=== PATIENT | female | born 1945 | race Caucasian/White ===

== ENCOUNTER 2021-01-30 05:36 | Inpatient (IN) | payer BC, MEDICARE ==
[~2021-01-30] VITALS: Ht 167.6 cm; Wt 104.5 kg
[2021-01-30] MEDS ORDERED: ATOR1TAB19 PO (07:32)
[2021-01-30] MEDS ORDERED: FOSA70TA PO (07:32)
[2021-01-30] MEDS ORDERED: ACTO30TA15 PO (07:32)
[2021-01-30] MEDS ORDERED: DITR5TAB PO (07:32)
[2021-01-30] MEDS ORDERED: ASPI81CH33 PO (07:32)
[2021-01-30] MEDS ORDERED: FAMO10TA53 PO (07:32)
[2021-01-30] MEDS ORDERED: MIRA3350 PO (07:32)
[2021-01-30] MEDS ORDERED: ACCU5TAB7 PO (07:32)
[2021-01-30] MEDS ORDERED: MORPHINE 4 MG/ML 1ML VIAL/SYRINGE (J2270) IV ONE ×2 (07:35→09:05)
[2021-01-30] MEDS ORDERED: BOOSTRIX/ADACEL VACCINE (DIPHTH/PERTUSS/ACELL/TETANUS) 0.5ML SYR IM ONE (07:35)
[2021-01-30 08:03] LABS: BASO % 0.2 % (0.0-1.0); EOS % 0.2 % (0.0-3.0); HEMATOCRIT 33.9 % (36.0-47.0); HEMOGLOBIN 10.6 g/dl (12.0-15.5); LYMPH # 1.3 10^3/uL (1.5-5.0); LYMPH % 8.6 % (24.0-44.0); MEAN CORPUSCULAR HEMOGLOBIN 30.2 pg (27.0-33.0); MEAN CORPUSCULAR HGB CONC 31.3 g/dl (32.0-36.5); MEAN CORPUSCULAR VOLUME 96.6 fl (80.0-96.0); MONO # 1.1 10^3/uL (0.0-0.8); MONO % 7.3 % (2.0-8.0); NEUTROPHILS # 12.9 10^3/uL (1.5-8.5); NEUTROPHILS % 82.8 % (36.0-66.0); PLATELET COUNT, AUTOMATED 264 10^3/uL (150-450); RED BLOOD COUNT 3.51 10^6/uL (4.00-5.40); WHITE BLOOD COUNT 15.5 10^3/uL (4.0-10.0)
--- NOTE | 2021-01-30 08:32 | REP ---
INDICATION: trauma post rib pain COMPARISON: None TECHNIQUE: Axial noncontrast images from the thoracic inlet to the upper abdomen with coronal and sagittal reformations. This CT examination was performed using the following dose reduction techniques: Automated exposure control, adjustment of mA and/or kv according to the patient's size, and use of iterative reconstruction technique. FINDINGS: Posterior and lateral right 4th through 11th rib fractures with relatively mild bibasilar atelectasis and small pleural effusion. No pneumothorax. Tracheobronchial tree is patent. Mediastinum demonstrates atherosclerotic changes to the thoracic aorta and coronary arteries without aortic aneurysm or cardiomegaly. No pericardial effusion. No significant mediastinal fluid, hematoma, or evidence for injury. Further evaluation of the musculoskeletal structures demonstrate acute comminuted fracture involving the left humeral head/neck and old healed displaced proximal right humerus fracture. Limited upper abdomen without evidence for acute injury. IMPRESSION: 1. Multiple multipartite right rib fractures. Comminuted left humeral head/neck fracture. 2. Minimal bibasilar atelectasis and small pleural effusions. <Electronically signed by Tez Lerma > 01/30/21 0831
[2021-01-30 08:38] LABS: ALBUMIN 3.4 GM/DL (3.2-5.2); ALT/SGPT 12 U/L (12-78); BILIRUBIN,DIRECT 0.1 MG/DL (0.0-0.2); BILIRUBIN,TOTAL 0.4 MG/DL (0.2-1.0); BLOOD UREA NITROGEN 32 MG/DL (7-18); CALCIUM LEVEL 8.3 MG/DL (8.8-10.2); CARBON DIOXIDE LEVEL 25 MEQ/L (21-32); CHLORIDE LEVEL 108 MEQ/L (98-107); CK-MB VALUE MASS 1.3 NG/ML (<3.6); CPK CREATINE PHOSPHOKINASE 153 U/L (26-192); CREATININE FOR GFR 1.43 MG/DL (0.55-1.30); FREE T4 1.23 NG/DL (0.76-1.46); GLOMERULAR FILTRATION RATE 37.9 (>39); GLUCOSE, FASTING 189 MG/DL (70-100); MB/CK RELATIVE INDEX 0.85 (< OR =4); SODIUM LEVEL 143 MEQ/L (136-145); TOTAL PROTEIN 6.8 GM/DL (6.4-8.2); TROPONIN I < 0.02 NG/ML (< 0.10)
--- NOTE | 2021-01-30 08:55 | REP ---
INDICATION: trauma COMPARISON: None. TECHNIQUE: AP, lateral, bilateral oblique and sunrise views. FINDINGS: Age-related osteopenia and moderate tricompartmental osteoarthritic degenerative changes primarily involving the patella and patellofemoral joint space. No obvious acute fracture or dislocation, but subtle injury along the lateral aspect of the patella (versus irregular osteophyte) should be evaluated by physical examination. No definite effusion. IMPRESSION: Osteopenia and degenerative changes limit evaluation. No obvious acute fracture or dislocation. <Electronically signed by Tez Lerma > 01/30/21 08
[2021-01-30] MEDS: oxyBUTYnin *DITROPAN XL* 5 MG TABCR PO SCH ×4 (09:00→21:10)
--- NOTE | 2021-01-30 09:11 | REP ---
INDICATION: trauma COMPARISON: None. TECHNIQUE: AP and lateral views of the left humerus. FINDINGS: There is a comminuted displaced fracture through the humeral metaphysis. The acromioclavicular joint appears intact. The calcified glenoid and scapula appear intact. Underlying age-related osteopenia and degenerative changes noted. IMPRESSION: Comminuted displaced fracture through the humeral metaphysis.. <Electronically signed by Tez Lerma > 01/30/21 0908
[2021-01-30 09:41] LABS: RSV AMPLIFICATION NEGATIVE (NEGATIVE)
[2021-01-30] MEDS ORDERED: FAMO20TA PO (09:45)
[2021-01-30] MEDS ORDERED: QUIN40TA26 PO (09:45)
[2021-01-30] MEDS ORDERED: PIOG1TAB36 PO (09:45)
[2021-01-30] MEDS ORDERED: CETI10TA4 PO (09:45)
[2021-01-30] MEDS ORDERED: CHOL50002 PO (09:45)
[2021-01-30] MEDS ORDERED: ATOR80TA59 PO (09:45)
[2021-01-30] MEDS ORDERED: MAALOX 30 ML SUSP *UDC PO PRN (11:25)
[2021-01-30] MEDS ORDERED: MOM 30ML SUSPENSION UDC PO PRN (11:25)
[2021-01-30] MEDS ORDERED: NORCO, ANEXSIA 5/325MG TABLET (HYDROcodone/ACETAMINOPHEN) PO PRN (11:40)
[2021-01-30] MEDS ORDERED: ONDANSETRON 4 MG TAB PO PRN (11:40)
[2021-01-30] MEDS ORDERED: DEXTROSE 50% 50 ML SYRINGE IV PRN (13:30)
[2021-01-30] MEDS ORDERED: GLUCAGON INJ 1MG VIAL SC PRN (13:30)
[2021-01-30] MEDS ORDERED: GLUCOSE 4GM CHEW TABLET PO PRN (13:30)
[2021-01-30] MEDS ORDERED: PILL CUTTER 1 EACH XX ONE (13:31)
[2021-01-30] MEDS: DOCUSATE SODIUM 100MG CAPSULE PO SCH ×2 (13:38→21:31)
[2021-01-30] MEDS: ASPIRIN 81 MG CHEW TABLET PO SCH (13:38)
[2021-01-30] MEDS: HYDROmorphone 2 MG TAB PO PRN ×2 (13:38→23:40)
[2021-01-30] MEDS: HumaLOG INSULIN (NovoLOG) PER UNIT SC SCH ×2 (13:52→21:00)
--- NOTE | 2021-01-30 15:07 | ECGEPIP ---
[facility] - ED Test Date: 2021-01-30 Pat Name: PANCHITO BRUCE Department: Room: [place] [address] Gender: Female [employer]: TORI : 1945 Requested By: CHARLOTTE Correa Order Number: [id number] Reading MD: Sameer Hunt Measurements Intervals [place] Rate: 83 P: 28 NM: 142 QRS: -33 QRSD: 86 T: 34 QT: 388 QTc: 455 Interpretive Statements Normal sinus rhythm Left axis deviation Possible Anterior infarct , age undetermined NO PRIORS FOR COMPARISON Electronically Signed on 01-30-2021 15:07:36 EDT by Sameer Hunt
--- NOTE | 2021-01-30 15:22 | HPEPDOC ---
General Date of Admission Jan 30, 2021 at 11:14 Date of Service: Jan 30, 2021 Attending Physician: CJ MARTINEZ MD Chief Complaint The patient is a 75-year-old female admitted with a reason for visit of Fall, Left Humeral Fracture, Multiple Rib Fracture. History of Present Illness HPI Pt is a 75yo F who presented to ED with R-sided mid-upper back pain that started after an unwitnessed fall at 4:30am this morning. Pt was sleeping in a recliner chair and when attempting to get up she felt weakness in her ankles and fell forward, hitting her R side of upper body against the edge of a bed frame and possibly door frame as well. She denies head trauma, LOC, or loss of continence, seizure-like activity, postictal confusion. States the pain is 10/10 in severity, and is sharp and constant. was present and admits that she is unstable while walking and has a hx of falling. Pt is on vacation for this week, she and her travelled from [place]. PMHx Diabetes Mellitus Type 2 HTN Osteoporosis Chronic Lumbar Back pain Hypercholesterolemia Bladder Hyperactivity CKD stage III remote Hx GERD SxHx Cataract eye surgery Lateral ankle tendon avulsion repair. R wrist surgery-distal ulnar and radial internal fixation (2018). FHx Mother-celiacs disease, in her 80s. Father- Hx heart disease, at 65. 2 sisters- no pertinent health Hx, both alive. SHx No Hx smoking or EtOH use. No Hx illicit drug use. Balanced diet. Pt does not exercise regularly. Uses walker to ambulate. Pt was a law secretary, retired for 20yrs. ROS Gen: Pt c/o R sided rib pain. Denies fever or chills. HEENT: Denies SLADE, dysphagia, vision changes, neck pain. RESP: Denies SOB, admits to pain on R posterior and lateral thorax w deep inspiration. CVS: Denies chest pain the center of the chest but reports having pain in the right lateral chest region which she had rib fractures. ABD: Denies abdominal pain, N/V, diarrhea, or constipation. MSK: Denies pain or numbness in distal extremities. Admits to pain on R mid upper back. Reports having pain in the left shoulder as well NEURO: Denies paresthesias. SKIN: Denies distal extremity swelling. Physical Exam Gen: Pt is pleasant, but in moderate distress d/t pain. Pt speaking in short sentences due to pain with breathing. Psych: A+Ox3 HEENT: PERRLA, EOMI, hearing mildly decreased, no JVD, no cervical lymphaden opathy. Oral mucosa looks dry because she did not have anything to drink since morning. RESP: CTA b/l, no rhonchi, crackles, or wheeze. CVS: RRR, no gallop, rubs, or murmurs. ABD: soft, ND, NT, normoactive bowel sounds. MSK: Pt is wearing ankle braces b/l, and a brace on R wrist. Plantar/dorsiflex ion 5/5 b/l. Neck nontender to palpation. Tenderness to light palpation along ribs 6-9 posterior and lateral. Pt is wearing L arm sling, tenderness to light palpation proximal upper L arm. Pt unwilling to adduct L shoulder. NEURO CN III-XII intact. SKIN: Abrasion 1cm in diameter present on R anterior knee. Ecchymoses of similar size present on L medial knee. Imaging CT Chest without contrast Reported as- 1. Multiple multipartite right rib fractures. Comminuted left humeral head/neck fracture. 2. Minimal bibasilar atelectasis and small pleural effusions. XR Knee, complete RIGHT Reported as- Osteopenia and degenerative changes limit evaluation. No obvious acute fracture or dislocation. XR Humerus LEFT Reported as- Comminuted displaced fracture through the humeral metaphysis. Assessment Pt is a 75yo F w PMHx of diabetes mellitus type 2, HTN, osteoporosis, chronic lumbar back pain, hypercholesterolemia, bladder hyperactivity, CKD stage III, and GERD. She presented to ED today R-sided posterior and lateral mid thoracic pain d/t a fall this morning. Pt is being admitted to hospital for pain management and respiratory monitoring. Plan 1. Fall/Multiple Rib Fracture and R posterior and lateral mid back pain Bed rest, fall risk, and aspiration precaution orders in place. We will start on Dilaudid 0.5mg Q6HP PO PRN. Alternating between Dilaudid and h ydrocodone. We will start on hydrocodone bitart/acetaminophen 1 tab Q6HP PO PRN. Will give ondansetron 4mg PO BID PRN. Will give acetaminophen 650mg PO Q4H PRN. 2. Pain on Inspiration: We will continue to give pain medication and encourage patient to use incentive spirometry and lung expansion therapy to prevent having any pneumonia. We will start on incentive spirometry. 3. Fracture L Humeral Metaphysis Orthopedic Dr. Moore was consulted and is aware of this case. Will see pt tonight or tomorrow morning for humeral fracture evaluation. Pt can be on consistent carbohydrate diet We appreciate Dr. Moore's input on this patient. 4. Diabetes Mellitus Type [address] Started insulin sliding scale. Pt is on consistent carb diet. 5. HTN We will continue home dose of quinapril 40mg PO daily. We will continue home dose of aspirin 81mg PO daily. 7. Hypercholesterolemia We will continue home dose of atorvastatin 80mg QHS PO. 8. Bladder Hyperactivity We will continue home dose of oxybutyrin 5mg PO TID. 9. CKD stage III Will monitor GFR and Cr. Initial labs show GFR 37.9 L, Cr 1.43 H, BUN 32 H -Patient was again encouraged to drink as much as watery and food intake as possible 11. DVT Prophylaxis Will give heparin SC Q12H. DISPOSITION: Currently, our goal with this patient is to continue pain management and incentive spirometry. Will continue to monitor pt for clinical improvement. She will need outpatient f/u with orthopedic surgery for evaluation of humoral fracture. Home Medications Scheduled Alendronate Sodium (Fosamax) 70 Mg Tablet, 70 MG PO QWEEK, (Reported) FRIDAYS Aspirin (Aspirin) 81 Mg Tab.chew, 81 MG PO DAILY, (Reported) Atorvastatin Calcium (Atorvastatin Calcium) 80 Mg Tablet, 80 MG PO DAILY, (Reported) Cholecalciferol (Vitamin D3) (Vitamin D3) 125 Mcg Capsule, 125 MCG PO DAILY, (Reported) Oxybutynin Chloride (Ditropan Xl) 5 Mg Tab.er.24, 5 MG PO TID, (Reported) Pioglitazone HCl (Pioglitazone HCl) 15 Mg Tablet, 15 MG PO DAILY, (Reported) Polyethylene Glycol 3350 (Miralax) 119 Gm Powder, 17 GRAM PO DAILY, (Reported) Quinapril HCl (Quinapril HCl) 40 Mg Tablet, 40 MG PO DAILY, (Reported) Scheduled PRN Cetirizine HCl (Cetirizine HCl) 10 Mg Tablet, 10 MG PO DAILY PRN for ALLERGIES, (Reported) Famotidine (Famotidine) 20 Mg Tablet, 20 MG PO DAILY PRN for HEARTBURN, (Reported) Allergies Coded Allergies: No Known Drug Allergies (Verified Allergy, Unknown, 01/30/21) A-FIB/CHADSVASC A-FIB History Current/History of A-Fib/PAF?: No Current PO Anticoag Therapy: No Vital Signs Vital Signs Date Time Temp Pulse Resp B/P (MAP) Pulse Ox O2 Delivery O2 Flow Rate FiO2 01/30/21 14:15 181/79 (113) 01/30/21 14:00 80 98 01/30/21 13:45 Nasal Cannula 2.0 01/30/21 13:38 18 01/30/21 07:23 97.5 Laboratory Data Labs 24H Laboratory Tests 2 01/30/21 07:43: Immature Granulocyte % (Auto) 0.9, Neutrophils (%) (Auto) 82.8H, Lymphocytes (%) (Auto) 8.6L, Monocytes (%) (Auto) 7.3, Eosinophils (%) (Auto) 0.2, Basophils (%) (Auto) 0.2, Neutrophils # (Auto) 12.9H, Lymphocytes # (Auto) 1.3L, Monocytes # (Auto) 1.1H, Eosinophils # (Auto) 0.0, Basophils # (Auto) 0.0, Nucleated Red Blood Cells % (auto) 0.0, Anion Gap 10, Glomerular Filtration Rate 37.9L, Calcium Level 8.3L, Total Bilirubin 0.4, Direct Bilirubin 0.1, Aspartate Amino Transf (AST/SGOT) 19, Alanine Aminotransferase (ALT/SGPT) 12, Alkaline Phosphatase 87, Total Creatine Kinase 153, Creatine Kinase MB 1.3, Creatine Kinase MB Relative Index 0.85, Troponin I < 0.02, Total Protein 6.8, Albumin 3.4, Albumin/Globulin Ratio 1.0L, Thyroid Stimulating Hormone (TSH) 1.290, Free Thyroxine 1.23 01/30/21 08:54: Coronavirus (COVID-19)(PCR) NEGATIVE, Influenza Type A (RT-PCR) NEGATIVE, Influenza Type B (RT-PCR) NEGATIVE, Respiratory Syncytial Virus (PCR) NEGATIVE 01/30/21 13:46: Bedside Glucose (Misc Panel) 204H CBC/BMP Laboratory Tests 01/30/21 07:43 Plan / VTE VTE Prophylaxis Ordered?: Yes KEN [id number] Jan 30, 2021 15:22 Enrique Lakhani MD Jan 30, 2021 19:27
--- NOTE | 2021-01-30 18:46 | CR ---
CONSULTATION DATE: 01/30/2021 CHIEF COMPLAINT: Left proximal humerus fracture. HISTORY OF PRESENT ILLNESS: This 75-year-old female had a fall. She is visiting from [place]. They are renting a camp. She lives five hours away. She is here with her . No chest pain, shortness of breath, or loss of consciousness. She is right hand dominant. She has had a prior right proximal humerus fracture treated successfully nonoperatively and now this is on the left side her injury. She has been admitted to the hospital to the hospitalist service for multiple rib fractures and pain management. PAST MEDICAL HISTORY: 1. Type 2 diabetes. 2. Hypertension. 3. Osteoporosis. 4. Chronic lumbar back pain. 5. Hypercholesterolemia. 6. Bladder hyperactivity. 7. CKD stage III. 8. Remote history of GERD. MEDICATIONS: 1. Alendronate. 2. Aspirin. 3. Atorvastatin. 4. Vitamin D3. 5. Oxybutynin. 6. Pioglitazone. 7. Polyethylene glycol. 8. Quinapril. ALLERGIES: No known drug allergies. PAST SURGICAL HISTORY: 1. Cataracts. 2. Left ankle tendon avulsion repair. 3. Right wrist surgery ORIF in 2018. SOCIAL HISTORY: No history of smoking or ETOH. No drug use. Uses the walker regularly to ambulate. PHYSICAL EXAMINATION: A 75-year-old obese female. She looks her stated age. Inspection of her left upper extremity reveals no obvious overlying ecchymosis or deformity. There is an increased soft tissue envelope. Normal sensation, motor function axillary nerve, as well as MRU, AIN/PIN. Hands are warm and well perfused. Strong radial pulse. No pain at the hand, wrist, or elbow. Forearm compartments are soft. IMAGING DATA: Radiographs reviewed of the left proximal humerus, as well as the CT scan. There is a comminuted displaced fracture through the humeral metaphysis. The glenohumeral joint appears reduced. The amount of displacement is approximately a little over 50% with the humeral shaft lying medially. ASSESSMENT AND PLAN: This 75-year-old obese medically unwell female with a left proximal humerus fracture displaced a little over 50%. I explained to her options of nonoperative conservative management and a sling followed by pendulum exercises, hand, wrist, and elbow exercises, and discontinuing the sling at about week two to three after the injury. Her other option would be open reduction internal fixation with plate fixation. Discussed the surgical risks of infection, pain, stiffness, bleeding, damage to surrounding structures, neurovascular injury, delayed mal or nonunion, plate irritation, failure of the plate, anesthetic complications, blood clots, , and other risks. In addition, one could try to treat this in a closed fashion and possibly perform reverse total shoulder arthroplasty if she fails that, although she ambulates with a walker, and this would be contraindicated and less than ideal. Also complicating the situation is the fact that the patient lives in [place] many hours away and has rented a cabin up near here. I think, in my opinion, the most prudent for her would be to treat the proximal humerus fracture for now nonoperatively, control the rib pain, see physical therapy (PT), occupational therapy (OT) and social work while admitted to the hospital for discharge planning in the next few days and attempt to return closer to where they live with further consideration given to surgery at that point potentially. In addition, they should get the opinion of the surgeon who treated the right proximal humerus fracture so they can compare the amount of displacement and angulation, as they had a good result with nonoperative treatment on the other side and as this side were to look similar, then one could hopefully expect a similar outcome. I have explained this all to the patient and her and for now, we will wait to make a final decision, although my impression is that she would do better at this point with conservative management given her difficulties with mobility, rib fractures, and current social situation. For now the patient can be MIHIR and a sling to the left upper extremity. SOPHIA
[2021-01-30] MEDS: NORCO, ANEXSIA 5/325MG TABLET (HYDROcodone/ACETAMINOPHEN) PO PRN (18:51)
[2021-01-30] MEDS: ATORVASTATIN 20 MG TAB PO SCH (21:31)
[2021-01-30] MEDS: HEPARIN SOD (PORCINE) 5000UNITS/ML 1ML VIAL/SYRINGE SC SCH (21:33)
[2021-01-30 23:17] VITALS: BP 182/79
[2021-01-31] MEDS ORDERED: MORPHINE 4 MG/ML 1ML VIAL/SYRINGE (J2270) IV ONE (00:40)
[2021-01-31] MEDS: NORCO, ANEXSIA 5/325MG TABLET (HYDROcodone/ACETAMINOPHEN) PO PRN ×2 (01:39→12:54)
[2021-01-31 02:00] VITALS: BP 146/59
[2021-01-31 05:23] VITALS: BP 127/97
[2021-01-31 07:31] LABS: BASO % 0.3 % (0.0-1.0); EOS % 0.1 % (0.0-3.0); HEMATOCRIT 29.5 % (36.0-47.0); HEMOGLOBIN 9.1 g/dl (12.0-15.5); LYMPH # 1.5 10^3/uL (1.5-5.0); LYMPH % 13.6 % (24.0-44.0); MEAN CORPUSCULAR HEMOGLOBIN 29.9 pg (27.0-33.0); MEAN CORPUSCULAR HGB CONC 30.8 g/dl (32.0-36.5); MONO # 1.2 10^3/uL (0.0-0.8); NEUTROPHILS # 8.1 10^3/uL (1.5-8.5); NEUTROPHILS % 74.7 % (36.0-66.0); PLATELET COUNT, AUTOMATED 199 10^3/uL (150-450); RED BLOOD COUNT 3.04 10^6/uL (4.00-5.40); WHITE BLOOD COUNT 10.9 10^3/uL (4.0-10.0)
[2021-01-31 07:50] LABS: CALCIUM LEVEL 7.8 MG/DL (8.8-10.2); CREATININE FOR GFR 1.76 MG/DL (0.55-1.30); GLOMERULAR FILTRATION RATE 29.8 (>39); POTASSIUM SERUM 4.6 MEQ/L (3.5-5.1)
[2021-01-31] MEDS ORDERED: NS 0.45% 1,000 ML IV SCH (08:55)
[2021-01-31] MEDS ORDERED: QUINAPRIL 20 MG TAB PO SCH (09:00)
--- NOTE | 2021-01-31 09:07 | REP ---
INDICATION: Rib fractures. COMPARISON: None. TECHNIQUE: PA and lateral FINDINGS: The lateral views nondiagnostic. It is grossly underpenetrated. Secondary to the patient's proximal left humeral fracture of the left arm could not be raised above the head. The frontal view shows a patchy right upper lobe opacity and patchy left lower lobe opacities with left CP angle blunting. There is cardiomegaly. There are multiple age undetermined right rib fractures better seen on the chest CT obtained yesterday. IMPRESSION: One exam limitations as described above 2 patchy bilateral lung field opacities as described above probable subsegmental atelectatic changes, however, developing pneumonia cannot be ruled out. Consider repeat chest CT. <Electronically signed by Vito Obregon > 01/31/21 0993
[2021-01-31] MEDS: DOCUSATE SODIUM 100MG CAPSULE PO SCH ×2 (09:33→21:22)
[2021-01-31] MEDS: ASPIRIN 81 MG CHEW TABLET PO SCH (09:34)
[2021-01-31] MEDS: HEPARIN SOD (PORCINE) 5000UNITS/ML 1ML VIAL/SYRINGE SC SCH ×2 (09:34→21:23)
[2021-01-31] MEDS: oxyBUTYnin *DITROPAN XL* 5 MG TABCR PO SCH ×3 (09:34→22:13)
[2021-01-31] MEDS: HumaLOG INSULIN (NovoLOG) PER UNIT SC SCH ×3 (09:35→18:07)
[2021-01-31 10:00] VITALS: BP 113/72
--- NOTE | 2021-01-31 11:13 | IPNPDOC ---
Text Note Date of Service The patient was seen on 01/31/21. NOTE Subjective Pt was seen at bedside today and c/o consistent pain in her R back posterior and laterally. She admits the pain is the same or possibly worse than yesterday, and was exacerbated by moving to for x-ray. Pt was speaking in short sentences, and had pain with speaking and deep breaths. She also c/o irritation from recent onset lesions between the skin folds of her lower abdomen. Pt states her pain has not been adequately controlled by pain medicine given. She has not been drinking much liquid, and has difficulty lifting cup of water to drink it, and last food intake was a small amount of chicken broth last night. Denies any SOB, chest pain, N/V, SLADE, dizziness, fever, chills, dysphagia, abdominal pain, diarrhea, constipation, or dysuria. Objective Gen: Pt is pleasant, but in moderate distress d/t pain. Psych: A+Ox3 HEENT: oral cavity moderately dry, PERRLA, hearing mildly decreased, no JVD, no cervical lymphadenopathy. RESP: CTA b/l, no rhonchi, crackles, or wheeze. CVS: RRR, no gallop, rubs, or murmurs. ABD: soft, ND, NT, normoactive bowel sounds. MSK: Pt is wearing ankle braces b/l, and a brace on R wrist. Plantar/dorsiflexion 5/5 b/l. Neck non-tender to palpation. Pt is wearing L arm sling. Skin: lesions present inside skin fold on inferior aspect of abdomen, dry dressing applied. Abrasion 1cm in diameter present on R anterior knee. Ec chymosis of similar size present on L medial knee. Assessment Pt is a 75yo F w PMHx of diabetes mellitus type 2, HTN, osteoporosis, chronic lumbar back pain, hypercholesterolemia, bladder hyperactivity, CKD stage III, and GERD. She presented to ED yesterday w R-sided posterior and lateral mid thor acic pain d/t a fall yesterday morning. Imaging revealed multiple R rib fractures and a comminuted displaced fracture through the L humeral metaphysis. Pt was admitted to hospital for pain management and respiratory monitoring. Plan 1. Fall/Multiple Rib Fracture and R posterior and lateral mid back pain Bed rest, fall risk, and aspiration precaution orders in place. Will c/w Dilaudid 0.5mg Q12H PO BID. Will c/w hydrocodone bitart/acetaminophen 1 tab Q12H PO BID. Alternating between Dilaudid and [place] every 6 hrs. Will c/w ondansetron 4mg PO BID PRN. Will c/w acetaminophen 650mg PO Q4H PRN. CXR this morning reported as: The frontal view shows a patchy right upper lobe opacity and patchy left lower lobe opacities with left CP angle blunting. There is cardiomegaly. There are multiple age undetermined right rib fractures. Probable subsegmental atelectatic changes. Suspicion of pneumonia. 2. MIKEL after admission GFR downtrending at 29.8. BUN trending up at 43, Cr trending up at 1.76. Pt only had 50ml oral intake yesterday d/t decreased intake. She was given fluids today. Will monitor GFR and Cr. Patient was encouraged to drink as much as water as possible. Quinapril has been discontinued. Will c/w fluid maintenance. 3. Pain on Inspiration: Sating 95% on 2L O2 nasal cannula. Patient needs to use the incentive spirometry for a full recovery with proper lung expansion and to prevent development of pneumonia. 4. Fracture L Humeral Metaphysis Orthopedic surgeon Dr. Mann was consulted and is aware of this case, and he saw pt yesterday for humeral fracture evaluation. As per Dr. Mann's recommendation, nonoperative conservative management and use of a sling followed by pendulum exercises, hand, wrist, and elbow exercises, in addition to PT/OT will be most beneficial. Sling may be discontinued about week two to three after the injury. Her other option would be open reduction internal fixation with plate fixation, which can be discussed outpatient after consulting her previous orthopedic surgeon in [place]. We appreciate Dr. Mann's input on this patient. 5. Abdominal Skin Fold Lesions Will start Nystatin daily. 6. Diabetes Mellitus Type 2 Will c/w insulin sliding scale. Pt is on consistent carbohydrate diet. 7. HTN We will continue home dose of aspirin 81mg PO daily. 8. Hypercholesterolemia We will continue home dose of atorvastatin 80mg QHS PO. 9. Bladder Hyperactivity We will continue home dose of oxybutynin 5mg PO TID. 10. DVT Prophylaxis Will c/w heparin SC Q12H. DISPOSITION: Currently, our goal with this patient is to continue pain management and incentive spirometry. Will continue to monitor pt for clinical improvement, and monitor hydration. She will need outpatient f/u with orthopedic surgery. VS,Fishbone, I+O VS, Fishbone, I+O Laboratory Tests 01/31/21 06:50 Vital Signs Date Time Temp Pulse Resp B/P (MAP) Pulse Ox O2 Delivery O2 Flow Rate FiO2 01/31/21 05:23 98.3 18 127/97 (107) 99 Nasal Cannula 2.0 01/31/21 02:00 78 KEN GARCIA OMS-3 Jan 31, 2021 11:13
[2021-01-31 14:00] VITALS: BP 150/60
[2021-01-31 18:00] VITALS: BP 123/93
[2021-01-31] MEDS: HYDROmorphone 2 MG TAB PO SCH (18:06)
[2021-01-31] MEDS: NYSTATIN 100,000 UNITS/GM TOPICAL PWD 15 GM TOP SCH (18:08)
[2021-01-31] MEDS: ATORVASTATIN 20 MG TAB PO SCH (21:23)
[2021-01-31 22:00] VITALS: BP 119/67
[2021-02-01] MEDS: NORCO, ANEXSIA 5/325MG TABLET (HYDROcodone/ACETAMINOPHEN) PO SCH ×2 (00:24→13:09)
[2021-02-01 02:20] VITALS: O2SAT 99
[2021-02-01] MEDS ORDERED: NORCO, ANEXSIA 5/325MG TABLET (HYDROcodone/ACETAMINOPHEN) PO ONE (04:15)
[2021-02-01] MEDS: HYDROmorphone 2 MG TAB PO SCH ×2 (06:42→20:06)
[2021-02-01 06:45] VITALS: BP 127/65
[2021-02-01 07:07] LABS: BASO % 0.2 % (0.0-1.0); EOS # 0.1 10^3/uL (0.0-0.5); EOS % 0.6 % (0.0-3.0); HEMATOCRIT 26.9 % (36.0-47.0); HEMOGLOBIN 8.5 g/dl (12.0-15.5); LYMPH # 1.1 10^3/uL (1.5-5.0); LYMPH % 10.4 % (24.0-44.0); MEAN CORPUSCULAR HEMOGLOBIN 30.4 pg (27.0-33.0); MEAN CORPUSCULAR HGB CONC 31.6 g/dl (32.0-36.5); MEAN CORPUSCULAR VOLUME 96.1 fl (80.0-96.0); MONO # 1.1 10^3/uL (0.0-0.8); MONO % 9.8 % (2.0-8.0); NEUTROPHILS # 8.5 10^3/uL (1.5-8.5); NEUTROPHILS % 78.4 % (36.0-66.0); PLATELET COUNT, AUTOMATED 209 10^3/uL (150-450); WHITE BLOOD COUNT 10.9 10^3/uL (4.0-10.0)
[2021-02-01 07:30] LABS: CALCIUM LEVEL 8.2 MG/DL (8.8-10.2); CREATININE FOR GFR 1.33 MG/DL (0.55-1.30); GLOMERULAR FILTRATION RATE 41.2 (>39); POTASSIUM SERUM 4.9 MEQ/L (3.5-5.1)
[2021-02-01] MEDS: HumaLOG INSULIN (NovoLOG) PER UNIT SC SCH ×3 (07:54→18:20)
[2021-02-01] MEDS: HEPARIN SOD (PORCINE) 5000UNITS/ML 1ML VIAL/SYRINGE SC SCH ×2 (08:07→20:20)
[2021-02-01] MEDS: DOCUSATE SODIUM 100MG CAPSULE PO SCH ×2 (08:07→20:20)
[2021-02-01] MEDS: oxyBUTYnin *DITROPAN XL* 5 MG TABCR PO SCH ×3 (08:07→20:20)
[2021-02-01] MEDS: ASPIRIN 81 MG CHEW TABLET PO SCH (08:07)
[2021-02-01] MEDS: NYSTATIN 100,000 UNITS/GM TOPICAL PWD 15 GM TOP SCH (08:08)
--- NOTE | 2021-02-01 10:56 | IPNPDOC ---
Text Note Date of Service The patient was seen on 02/01/21. NOTE Subjective Pt was seen at bedside today and was in moderate amount of pain. She continues to have right mid back pain which is worsened on deep inspiration. She also c/o a burning sensation along her lower abdomen where she has a broad lesion in the skin fold. Pt admits pain meds have been helping to decrease pain, but any movement exacerbated the severity of her back pain. Pt c/o dry mouth, which is chronic, and states she uses Biotene rinse at home and would like some here. She has been drinking more water since yesterday, without assistance, and has been working on her incentive spirometry. Denies SLADE, dizziness, chest pain, acute SOB, N/V, dysphagia, diarrhea, c onstipation, abdominal pain, or dysuria. Objective Gen: Pt is pleasant, but has discomfort when trying to speak to long. Psych: A+Ox3 HEENT: no cervical lymphadenopathy, no JVD, oral cavity very dry. RESP: CTA b/l w no rales, rhonchi, or wheeze. CVS: RRR w no murmur, rubs, or gallop. Distal pulses intact. ABD: soft, ND, Pt c/o mild pain in along diaphragm region secondary to deep palpation in upper quadrants. MSK: Pts ankle braces had been removed this morning. Plantarflexion 5/5 b/l. Cervical region non-tender to palpation. Skin: R knee covered with adhesive bandage, ecchymosis present along medial aspect. Skin is mildly depressed along lower legs where braces where present. Assessment Pt is 75yo F w PHHx DMT2, HTN, osteoporosis, hypercholesterolemia, bladder hyperactivity, CKD stage III, and remote Hx GERD. She presented Friday to ED w R-sided posterior and lateral mid thoracic pain d/t a fall that morning. Imaging revealed multiple R rib fractures and a comminuted displaced fracture through the L humeral metaphysis. Pt was admitted to hospital for pain management and respiratory monitoring. Plan 1. Fall/Multiple Rib Fracture and R posterior and lateral mid back pain Bed rest, fall risk, and aspiration precaution orders in place. We will continue Dilaudid and Narvon alternatively for pain management -Given that patient is out of town and she requires acute rehab she opts for acute rehab [place]. -PT and OT orders were placed in, PFS is working on the transfer to an acute rehab near [facility] 2. MIKEL after admission Patient's kidney function is improving since yesterday Will monitor GFR and Cr. Patient has increased oral water intake over last 24 hrs. Oral intake total- 1540ml yesterday+ 300ml today. Will c/w fluid maintenance to day as well. 3. Pain on Inspiration: Patient still reports having pain on deep inspiration in her back. -Incentive spirometry has been ordered and she is working with that, since her pain is better controlled since yesterday. 4. Fracture L Humeral Metaphysis Orthopedic surgeon Dr. Mann was consulted and is aware of this case, and he saw pt Friday night for humeral fracture evaluation. As per Dr. Mann's recommendation, nonoperative conservative management and use of a sling followed by pendulum exercises, hand, wrist, and elbow exercises, in addition to PT/OT will be most beneficial. Sling may be discontinued in two to three weeks. Her other option would be open reduction internal fixation with plate fixation, which can be discussed outpatient after consulting her previous orthopedic surgeon in [place]. We appreciate Dr. Mann's input on this patient. 5. Abdominal Skin Fold Lesions Will use vash to clean the skin and continue Interdry. 6. Diabetes Mellitus Type 2 Will c/w insulin sliding scale. Pt is on consistent carbohydrate diet. 7. HTN Continue aspirin 81 p.o. 8. Hypercholesterolemia Continue statin 80 mg p.o. O. 9. Bladder Hyperactivity Continue oxybutynin 5 mg p.o. 10. DVT Prophylaxis Will c/w heparin SC Q12H. Disposition: Patient is waiting to be transferred to acute rehab near to [place]. NAKITA is working on that. VS,Fishbone, I+O VS, Fishbone, I+O Laboratory Tests 02/01/21 06:34 Vital Signs Date Time Temp Pulse Resp B/P (MAP) Pulse Ox O2 Delivery O2 Flow Rate FiO2 02/01/21 07:12 18 Nasal Cannula 1.0 02/01/21 06:45 97.6 91 127/65 (85) 99 I&O- Last 24 Hours up to 6 AM 02/01/21 06:00 Intake Total 1840 ml Balance 1840 ml KEN GARCIA OMS-3 Feb 01, 2021 10:56 Enrique Lakhani MD Feb 01, 2021 19:09
[2021-02-01 14:00] VITALS: BP 151/66
[2021-02-01 20:01] VITALS: BP 143/67
[2021-02-01] MEDS: ATORVASTATIN 20 MG TAB PO SCH (20:20)
[2021-02-02] MEDS: NORCO, ANEXSIA 5/325MG TABLET (HYDROcodone/ACETAMINOPHEN) PO SCH ×2 (00:17→12:35)
[2021-02-02 01:03] VITALS: O2SAT 96
[2021-02-02] MEDS: HYDROmorphone 2 MG TAB PO SCH ×2 (06:22→19:24)
[2021-02-02 06:29] VITALS: BP 153/69
[2021-02-02 06:34] LABS: BASO % 0.3 % (0.0-1.0); EOS # 0.2 10^3/uL (0.0-0.5); HEMATOCRIT 25.7 % (36.0-47.0); HEMOGLOBIN 8.2 g/dl (12.0-15.5); LYMPH # 1.3 10^3/uL (1.5-5.0); LYMPH % 13.6 % (24.0-44.0); MEAN CORPUSCULAR HEMOGLOBIN 30.5 pg (27.0-33.0); MEAN CORPUSCULAR HGB CONC 31.9 g/dl (32.0-36.5); MEAN CORPUSCULAR VOLUME 95.5 fl (80.0-96.0); MONO # 0.9 10^3/uL (0.0-0.8); MONO % 9.6 % (2.0-8.0); NEUTROPHILS # 7.2 10^3/uL (1.5-8.5); PLATELET COUNT, AUTOMATED 232 10^3/uL (150-450); RED BLOOD COUNT 2.69 10^6/uL (4.00-5.40); WHITE BLOOD COUNT 9.7 10^3/uL (4.0-10.0)
[2021-02-02 07:01] LABS: CALCIUM LEVEL 8.7 MG/DL (8.8-10.2); CREATININE FOR GFR 1.24 MG/DL (0.55-1.30); GLOMERULAR FILTRATION RATE 44.7 (>39); POTASSIUM SERUM 4.7 MEQ/L (3.5-5.1)
[2021-02-02] MEDS: NYSTATIN 100,000 UNITS/GM TOPICAL PWD 15 GM TOP SCH (08:11)
[2021-02-02] MEDS: HEPARIN SOD (PORCINE) 5000UNITS/ML 1ML VIAL/SYRINGE SC SCH ×2 (08:12→19:24)
[2021-02-02] MEDS: oxyBUTYnin *DITROPAN XL* 5 MG TABCR PO SCH ×3 (08:12→19:24)
[2021-02-02] MEDS: HumaLOG INSULIN (NovoLOG) PER UNIT SC SCH ×3 (08:12→17:18)
[2021-02-02] MEDS: ASPIRIN 81 MG CHEW TABLET PO SCH (08:13)
[2021-02-02] MEDS: DOCUSATE SODIUM 100MG CAPSULE PO SCH ×2 (08:13→19:24)
[2021-02-02] MEDS: ACETAMINOPHEN TAB 650MG DOSE (2X325MG) PO PRN ×2 (08:14→16:10)
--- NOTE | 2021-02-02 11:29 | IPNPDOC ---
Text Note Date of Service The patient was seen on 02/02/21. NOTE Subjective Pt was seen at bedside today and c/o persistent pain in her R mid back, which was exacerbated by moving on her side for a bed becerra placement this morning. She admits the pain is a 10/10, and she prefers lying on her back in an inclined position. Pt has pain in that area with deep inspiration. Pt admits her burning sensation between her lower abdominal skin fold has much improved. She was working on her spirometry last night, and will do so today. Pt c/o R wrist soreness where her brace has been in place for some time. Denies acute SOB, SLADE, chest pain, N/V, constipation, diarrhea. Objective Gen: Pt is pleasant. Patient talked for a while today and pain was not as exacerbated by this as yesterday. Psych: A+Ox3 HEENT: no cervical tenderness to palpation. Oral cavity moderately dry. RESP: CTA w no rhonchi, wheeze, or crackles. CVS: RRR w no murmur. ABD: soft, nondistended, normoactive sounds, but moderately tender to deep palpation in b/l upper right quadrant, radiating along thoracoabdominal diaphragm. MSK: R wrist was examined w brace removed, tender to light palpation along radial aspect w ecchymosis present, but no obvious deformity. Plantarflexion strength intact. Lower extremities non-tender. Skin: lower abdominal lesions present in skin fold, mildly erythematous, but improved since yesterday. The area is dry and nystatin powder is present. Assessment Pt is a 75yo female w past medical Hx of diabetes type 2, HTN, osteoporosis, hypercholesterolemia, CKD stage III, and blader hyperactivity. She was admitted to the hospital on 01/30 for management of her R sided back pain that onset after a fall forward out of a chair that morning, as well as respiratory therapy measures. Pt had multiple rib fx and a L humeral neck fracture evidenced by imaging, for which orthopedics have assisted in the plan. Plan 1. R Posterior Thoracic Pain/pain on inspiration-secondary to rib fractures. Bed rest, fall risk, and aspiration precaution orders in place. We will continue Dilaudid and [place] alternatively for pain management. Pt will be transferred to acute rehab tomorrow. PT and OT orders are in place. Pt is working on Incentive spirometry with some improvement in respiration noted. 2. Abdominal Skin Fold Lesions Lesions appeared dry w powder present and no drainage evident. Erythema has decreased over last 24hrs w no obvious signs of infection. Will continue w Nystatin powder application. Will use vash to clean the skin and continue Interdry. 3. MIKEL after admission Pts GFR and Cr WNL this morning indicating renal function improvement. Patient has been having good oral intake-total- 1620ml yesterday+ 720ml today. 4. Fracture L Humeral Metaphysis Orthopedic surgeon Dr. Mann evaluated pt and case Friday night. He recommended non-operative conservative management consisting of sling use for 2-3 weeks, followed by pendulum exercises, hand, wrist, and elbow exercise. Further consideration of surgical options can be discussed outpatient after consulting her previous orthopedic surgeon in [place]. 5. Diabetes Mellitus Type 2 We will continue with insulin sliding scale and consistent carbohydrate diet. 6. HTN Continue aspirin 81 PO daily. 7. Hypercholesterolemia Continue statin 80 mg PO daily. 8. Bladder Hyperactivity Continue oxybutynin 5 mg PO daily. 9. DVT Prophylaxis Will c/w heparin SC Q12H. Disposition: Pt will be transferred to acute rehab facility tomorrow near her [facility] in [facility]. VS,Fishbone, I+O VS, Fishbone, I+O Laboratory Tests 02/02/21 06:06 Vital Signs Date Time Temp Pulse Resp B/P (MAP) Pulse Ox O2 Delivery O2 Flow Rate FiO2 02/02/21 06:52 18 02/02/21 06:29 97.1 103 153/69 (97) 88 Room Air 02/02/21 01:03 1.0 I&O- Last 24 Hours up to 6 AM 02/02/21 06:00 Intake Total 1320 ml Output Total 0 ml Balance 1320 ml KEN GARCIA OMS-3 Feb 02, 2021 11:29
[2021-02-02 14:00] VITALS: BP 163/75
[2021-02-02] MEDS: ATORVASTATIN 20 MG TAB PO SCH (19:24)
[2021-02-02 22:00] VITALS: BP 149/65
[2021-02-02 22:20] VITALS: O2SAT 95
[2021-02-03] MEDS: NORCO, ANEXSIA 5/325MG TABLET (HYDROcodone/ACETAMINOPHEN) PO SCH (01:04)
[2021-02-03 06:24] VITALS: BP 155/68
[2021-02-03 06:39] LABS: BASO % 0.4 % (0.0-1.0); EOS # 0.2 10^3/uL (0.0-0.5); EOS % 2.3 % (0.0-3.0); HEMATOCRIT 25.6 % (36.0-47.0); HEMOGLOBIN 8.2 g/dl (12.0-15.5); LYMPH # 1.3 10^3/uL (1.5-5.0); LYMPH % 12.7 % (24.0-44.0); MEAN CORPUSCULAR HEMOGLOBIN 30.4 pg (27.0-33.0); MEAN CORPUSCULAR VOLUME 94.8 fl (80.0-96.0); MONO % 9.9 % (2.0-8.0); NEUTROPHILS # 7.6 10^3/uL (1.5-8.5); NEUTROPHILS % 73.5 % (36.0-66.0); PLATELET COUNT, AUTOMATED 246 10^3/uL (150-450); WHITE BLOOD COUNT 10.3 10^3/uL (4.0-10.0)
[2021-02-03] MEDS: HYDROmorphone 2 MG TAB PO SCH (06:42)
[2021-02-03 07:07] LABS: CALCIUM LEVEL 8.8 MG/DL (8.8-10.2); CREATININE FOR GFR 1.23 MG/DL (0.55-1.30); GLOMERULAR FILTRATION RATE 45.1 (>39); POTASSIUM SERUM 5.1 MEQ/L (3.5-5.1)
[2021-02-03] MEDS: DOCUSATE SODIUM 100MG CAPSULE PO SCH (08:15)
[2021-02-03] MEDS: ASPIRIN 81 MG CHEW TABLET PO SCH (08:15)
[2021-02-03] MEDS: oxyBUTYnin *DITROPAN XL* 5 MG TABCR PO SCH (08:15)
[2021-02-03] MEDS: HumaLOG INSULIN (NovoLOG) PER UNIT SC SCH (08:16)
[2021-02-03] MEDS: HEPARIN SOD (PORCINE) 5000UNITS/ML 1ML VIAL/SYRINGE SC SCH (08:16)
[2021-02-03] MEDS: NYSTATIN 100,000 UNITS/GM TOPICAL PWD 15 GM TOP SCH (08:16)
[2021-02-03] MEDS ORDERED: HYDR-3715 PO (09:36)
[2021-02-03] MEDS ORDERED: NORCO, ANEXSIA 5/325MG TABLET (HYDROcodone/ACETAMINOPHEN) PO SCH (09:40)
[2021-02-03] MEDS ORDERED: NORCO, ANEXSIA 5/325MG TABLET (HYDROcodone/ACETAMINOPHEN) PO PRN (09:55)
--- NOTE | 2021-02-03 13:50 | DS.PDOC ---
Discharge Summary General Date of Admission Jan 30, 2021 at 11:14 Date of Discharge 02/03/21 Attending Physician: REYNOLD JUAREZ MD Specialist/Consultants Involve: KAUSHIK PEARL MD Discharge Summary PROCEDURES PERFORMED DURING STAY: None ADMITTING DIAGNOSES: Diabetes Mellitus Type 2 HTN Osteoporosis Chronic Lumbar Back pain Hypercholesterolemia Bladder Hyperactivity CKD stage III remote Hx GERD DISCHARGE DIAGNOSES: Rib fracture (multiple) Humeral metaphysis fracture Diabetes Mellitus Type 2 HTN Osteoporosis Chronic Lumbar Back pain Hypercholesterolemia Bladder Hyperactivity CKD stage III remote Hx GERD COMPLICATIONS/CHIEF COMPLAINT: Fall, Left Humeral Fracture, Multiple Rib Fracture. HISTORY OF PRESENT ILLNESS: Mrs. Rasmussen is a pleasant 75 year old female presenting to the ED for 10/10 right sided upper back pain after an unwitnessed fall at 4:30 this morning. She and her Vinnie vacation in [place] every year from [place] for a week in a cabin. She sleeps in a recliner at night and this morning around 4:30 she fell forward after attempting to stand up out of the recliner. The right side of her body hit the edge of a nearby bedframe and part of the door way exiting the room. Her was sleeping in the nearby bed and helped her get back up into her recliner. He did not witness the fall and the patient states that she did not lose consciousness or have seizure like activity. HOSPITAL COURSE: 1.Thoracic pain secondary to rib fractures -Chest x ray showed multiple right sided rib fractures -Patient was put on Bed rest, fall risk precautions, and aspiration precaution -Dr. Pearl was consulted and recommended PT/OT and PFS while in the hospital and f/u with orthopedic surgeon closer to [place]. -Patient continued incentive spirometry during her hospitalization with improvement in inspiration noted. -Her pain was managed well with alternating [place], Dilaudid, and Tylenol. -She was evaluated by PT/OT and recommended to continue rehab after discharge -Patient was discharged to [facility] rehab in [place], [place] 2. Intertrigo -located on skin folds of abdominal panniculus -The inflammation was kept dry with nystatin powder and washed with vashe cleanser. -Interdry was placed between skin folds daily -The erythema was noted to decrease during her hospitalization and the patient experienced a decrease in pain 3. MIKEL -Patient developed an MIKEL after admission due to poor oral intake. -Her quinapril was held -She was started on maintenence IV fluids and encouraged to increase her oral intake of fluids -Her MIKEL resolved and her Creatinine level returned to baseline upon discharge 4. Fracture L Humeral Metaphysis -Patient was put in left arm sling and her pain was managed during hospitalization -Dr. Pearl was consulted and recommended non-operative conservative management consisting of sling use for 2-3 weeks, followed by pendulum, hand, wrist, and elbow exercises. -Mrs. Rasmussen is advised to follow up with an orthopedic surgeon near [place] upon discharge. 5. Diabetes Mellitus Type 2 -Patient was started on insulin sliding scale and a consistent carbohydrate diet. 6. HTN -Her blood pressure was maintained with home medications 7. Hypercholesterolemia -Patient was continued on home medications 8. Bladder Hyperactivity -Patient was continued on oxybutinin DISCHARGE MEDICATIONS: Please see below. ALLERGIES: Please see below. PHYSICAL EXAMINATION ON DISCHARGE: VITAL SIGNS: Please see below. GENERAL: Elderly female in no acute distress sitting in hospital bed HEENT: normocephalic, atraumatic, sclera nonicteric, mucous membranes moist and pink, patient has glasses on today. NECK: Trachea midline, no lymphadenopathy CARDIOVASCULAR EXAMINATION: 2/6 systolic murmur heard best in second ICS on the right, regular rate and rhythm, no gallops appreciated RESPIRATORY EXAMINATION: Decreased inspiratory effort bilaterally, diminished breath sounds, no rhonchi or rales appreciate. ABDOMINAL EXAMINATION: distended, positive bowel sounds, tender to deep palpation in right upper quadrant EXTREMITIES: L arm is in sling, ecchymosis visualized on lateral aspect of left upper extremity proximal to elbow, no edema noted on bilateral lower extremities. PSYCHIATRIC EXAMINATION: alert and oriented x 3, normal affect LABORATORY DATA: Please see below. IMAGIN01/30/21 Chest x-ray: Impression: Multiple multipartite right rib fractures. Comminuted left humeral head/neck fracture. Minimal bibasilar atelectasis and small pleural effusions. 01/30/21 Knee x-ray: Impression: Osteopenia and degenerative changes limit evaluation. No obvious acute fracture or dislocation. 01/30/21 Humerus X-ray: Impression: Comminuted displaced fracture through the humeral metaphysis. 01/31/21 Chest x-ray: Impression: One exam limitations as described above 2 patchy bilateral lung field opacities as described above probable subsegmental atelectatic changes, however, developing pneumonia cannot be ruled out. Consider repeat chest CT. PROGNOSIS: Good ACTIVITY: As tolerated, patient with require rehabilitation DIET: Consistent carbohydrate diet DISCHARGE PLAN: Discharge to rehab DISPOSITION: Patient is being discharged to [facility] in [place], [place] DISCHARGE INSTRUCTIONS: 1. Follow up with PCP within 1 week of discharge 2. Follow up with orthopedic surgeon within 1 week of discharge ITEMS TO FOLLOWUP ON ON OUTPATIENT: 1. Pain management 2. Rehabilitation of rib fracture 3. Surgical evaluation for humeral fracture DISCHARGE CONDITION: Stable TIME SPENT ON DISCHARGE: Greater than 25 minutes. Vital Signs/I&Os Vital Signs Date Time Temp Pulse Resp B/P (MAP) Pulse Ox O2 Delivery O2 Flow Rate FiO2 02/03/21 11:45 18 02/03/21 06:24 98.7 96 155/68 (97) 94 Room Air 02/02/21 01:03 1.0 I&O- Last 24 Hours up to 6 AM 02/03/21 06:00 Intake Total 1695 ml Balance 1695 ml Laboratory Data Labs 24H Laboratory Tests 2 02/02/21 16:18: Bedside Glucose (Misc Panel) 180H 02/03/21 06:20: Immature Granulocyte % (Auto) 1.2, Neutrophils (%) (Auto) 73.5H, Lymphocytes (%) (Auto) 12.7L, Monocytes (%) (Auto) 9.9H, Eosinophils (%) (Auto) 2.3, Basophils (%) (Auto) 0.4, Neutrophils # (Auto) 7.6, Lymphocytes # (Auto) 1.3L, Monocytes # (Auto) 1.0H, Eosinophils # (Auto) 0.2, Basophils # (Auto) 0.0, Nucleated Red Blood Cells % (auto) 0.2H, Anion Gap 3L, Glomerular Filtration Rate 45.1, Calcium Level 8.8 CBC/BMP Laboratory Tests 02/03/21 06:20 FSBS Laboratory Tests Test 02/02/21 16:18 Range/Units Bedside Glucose (Misc Panel) 180 83-110 MG/DL Discharge Medications Scheduled Alendronate Sodium (Fosamax) 70 Mg Tablet, 70 MG PO QWEEK, (Reported) FRIDAYS Aspirin (Aspirin) 81 Mg Tab.chew, 81 MG PO DAILY, (Reported) Atorvastatin Calcium (Atorvastatin Calcium) 80 Mg Tablet, 80 MG PO DAILY, (Reported) Cholecalciferol (Vitamin D3) (Vitamin D3) 125 Mcg Capsule, 125 MCG PO DAILY, (Reported) Oxybutynin Chloride (Ditropan Xl) 5 Mg Tab.er.24, 5 MG PO TID, (Reported) Pioglitazone HCl (Pioglitazone HCl) 15 Mg Tablet, 15 MG PO DAILY, (Reported) Polyethylene Glycol 3350 (Miralax) 119 Gm Powder, 17 GRAM PO DAILY, (Reported) Quinapril HCl (Quinapril HCl) 40 Mg Tablet, 40 MG PO DAILY, (Reported) Scheduled PRN Cetirizine HCl (Cetirizine HCl) 10 Mg Tablet, 10 MG PO DAILY PRN for ALLERGIES, (Reported) Famotidine (Famotidine) 20 Mg Tablet, 20 MG PO DAILY PRN for HEARTBURN, (Reported) Hydrocodone/Acetaminophen (Hydrocodone-Acetamin 5-325 mg) 1 Each Tablet, 1-2 TAB PO Q6HP PRN for MODERATE/SEVERE PAIN (PS 5-10) Allergies Coded Allergies: No Known Drug Allergies (Verified Allergy, Unknown, 01/30/21) GME ATTESTATION GME ATTESTATION My faculty preceptor for this patient encounter was physically present during the encounter and was fully available. All aspects of the patient interview, examination, medical decision making process, and medical care plan development were reviewed and approved by the faculty preceptor. The faculty preceptor is aware and concurs with the plan as stated in the body of this note and will attest to such by his/her cosignature. ATTENDING NOTE I, Reynold Juarez, have independently examined this patient and performed my own physical exam, as well as reviewed the documentation and edited where necessary. I have discussed in detail with the resident / student the findings and plan of treatment as documented by the resident / student and edited their note. I agree with their findings and treatment plan and have edited their documentation. I will continue to follow the patient during this hospital stay. Time spent on discharge 35 minutes CHANTELLE DO Feb 03, 2021 13:50 REYNOLD JUAREZ MD Feb 03, 2021 17:37
--- NOTE | 2021-02-03 20:38 | IPN ---
PROGRESS NOTE DATE: 02/01/2021 CHIEF COMPLAINT: Post-admission day one, left proximal humerus fracture. HISTORY OF PRESENT ILLNESS: This 75-year-old female sustained a proximal humerus fracture. This was displaced about 50%. She plans to return closer to [place] within the next few days for consideration of nonoperative versus surgical care of this fracture. She was admitted to the hospital for pain management and for possible left-side rib fractures. From that standpoint, she does have quite a bit of pain on the left side and is trying some incentive spirometry for that. PHYSICAL EXAM: This is a well appearing 75-year-old female. She does appear to be taking some deep breaths and breathing appropriately. The left upper extremity is closed, normal sensation, motor function of the axillary nerve. The hand is warm and well perfused, strong radial pulse. ASSESSMENT AND PLAN: This is a 75-year-old female with a proximal humerus fracture. The options that she has are nonoperative as well as open reduction and internal fixation as well as possibly delayed reverse total shoulder. She lives five hours away and has already made plans, I believe, she said on Friday to be transferred there to a long term where she can more supports as well. I agree with the plan and will not follow patient along unless there are further questions or concerns.
== END 2021-02-03 11:56 | DRG 184 ==
LOC: M ED 05:36 → M ED INP 11:14 → ENRESERV 22:00 → M MS5PR 23:29
PROVIDERS: ADMIT Internal Medicine; ATTEND Internal Medicine
DX: S22.41XA Multiple fractures of ribs, right side, initial encounter for closed fracture (principal); N17.9 Acute kidney failure, unspecified; S42.292A Other displaced fracture of upper end of left humerus, initial encounter for closed fracture; W01.0XXA Fall on same level from slipping, tripping and stumbling without subsequent striking against object, initial encounter; Y92.009 Unspecified place in unspecified non-institutional (private) residence as the place of occurrence of the external cause; E11.22 Type 2 diabetes mellitus with diabetic chronic kidney disease; I12.9 Hypertensive chronic kidney disease with stage 1 through stage 4 chronic kidney disease, or unspecified chronic kidney disease; M81.0 Age-related osteoporosis without current pathological fracture; M54.5 Low back pain; E78.00 Pure hypercholesterolemia, unspecified; N32.81 Overactive bladder; N18.30 Chronic kidney disease, stage 3 unspecified; K21.9 Gastro-esophageal reflux disease without esophagitis; Z79.899 Other long term (current) drug therapy; Z20.822 Contact with and (suspected) exposure to COVID-19; Z98.41 Cataract extraction status, right eye; Z98.42 Cataract extraction status, left eye; R21 Rash and other nonspecific skin eruption